=== PATIENT | male | born 2000 | race Hispanic/Latino ===

== ENCOUNTER 2024-06-30 04:56 | Inpatient (IN) | payer BC, SELFPAY ==
[2024-06-30] MEDS ORDERED: Lidocaine 1% w/Epinephrine 1:100K 20 ML VIAL ONE (05:00)
[2024-06-30 05:21] LABS: Hematocrit 42.8 % (42.0-52.0); Hemoglobin 14.7 g/dL (14.0-18.0); Mean Corpuscular HGB CONC 34.3 g/dL (32.0-36.0); Mean Corpuscular Volume 87.3 fL (78.0-98.0); Mean Platelet Volume 9.7 fL (7.4-10.4); Platelet Count 311 10x3/uL (130-400); RBC Distribution Width 12.2 % (11.5-14.5)
[2024-06-30 05:34] LABS: ALT (SGPT) 84 U/L (8-55); AST (SGOT) 109 U/L (5-34); Albumin 4.1 g/dL (3.5-5.0); Alkaline Phosphatase 59 U/L (40-110); Anion Gap 16 mmol/L (10-20); BUN (Urea Nitrogen) 10 mg/dL (8.9-20.6); Bilirubin, Total 0.3 mg/dL (0.2-1.2); Calc. Creatinine Clearance 0 mL/min (70-130); Calcium 8.5 mg/dL (7.8-10.44); Carbon Dioxide 20 mmol/L (22-29); Chloride 108 mmol/L (98-107); Estimated GFR 126; Glucose 142 mg/dL (70-105); Potassium 3.5 mmol/L (3.5-5.1); Protein, Total 7.1 g/dL (6.0-8.3); Sodium 140 mmol/L (136-145)
[2024-06-30 05:49] LABS: Band 8 % (5-11); Lymphocytes 6 % (21-51); Monocytes 5 % (0-10); Neutrophil 81 % (42-75); Platelet Adequacy Comment Platelets Normal; Polychromasia SLIGHT = 2-3 cells HPF (0-2)
[2024-06-30 06:34] VITALS: BMI 30.1
[2024-06-30] MEDS ORDERED: Glucagon 1 MG/ML KIT IM PRN (06:45)
[2024-06-30] MEDS ORDERED: Rib Fracture Protocol PO PRN (06:45)
[2024-06-30] MEDS ORDERED: traMADol HCl 50 MG TAB PO PRN (06:45)
[2024-06-30] MEDS ORDERED: Acetaminophen 325 MG TAB PO PRN (06:45)
[2024-06-30] MEDS ORDERED: Dextrose 50% Abboject 50 ML SYRINGE SLOW IVP PRN (06:45)
[2024-06-30] MEDS ORDERED: Ondansetron ODT 4 MG TAB PO PRN (06:45)
[2024-06-30] MEDS ORDERED: Dextrose 5% in Water 1,000 ML IV PRN (06:45)
[2024-06-30] MEDS ORDERED: Morphine 4 MG/ML VIAL SLOW IVP PRN (06:45)
[2024-06-30] MEDS ORDERED: Cyclobenzaprine 10 MG TAB PO PRN (07:18)
[2024-06-30] MEDS: Lactated Ringer's 1,000 ML IV SCH (07:30)
[2024-06-30] MEDS ORDERED: Iopamidol-370 76% 500 ML MDV (1 ML CHARGE) ONE (10:56)
[2024-06-30 11:31] LABS: #Basophils 0.04 10x3/uL (0.0-0.2); #Eosinophils Less than 0.03 10x3/uL (0.0-0.7); %Basophils 0.2 % (0.0-1.0); %Eosinophils 0.1 % (0.0-10.0); %Lymphocytes 14.3 % (21.0-51.0); %Monocytes 6.9 % (0.0-10.0); %Neutrophils 77.6 % (42.0-75.0); Hematocrit 39.4 % (42.0-52.0); Hemoglobin 13.5 g/dL (14.0-18.0); Mean Corpuscular HGB CONC 34.3 g/dL (32.0-36.0); Mean Corpuscular Hemoglobin 29.9 pg (27.0-31.0); Mean Corpuscular Volume 87.4 fL (78.0-98.0); Mean Platelet Volume 9.5 fL (7.4-10.4); Platelet Count 265 10x3/uL (130-400); RBC Distribution Width 12.3 % (11.5-14.5); Red Blood Cell (RBC) Count 4.51 mill/uL (4.70-6.10)
[2024-06-30] MEDS: Acetaminophen 500 MG TAB PO SCH ×2 (11:50→18:00)
[2024-06-30] MEDS: Methocarbamol 500 MG TAB PO PRN (11:51)
[2024-06-30] MEDS: traMADol HCl 50 MG TAB PO SCH (11:51)
[2024-06-30] MEDS: Ipratropium/Albuterol 3 ML NEB NEB SCH (15:03)
[2024-06-30] MEDS: Gabapentin 300 MG CAP PO SCH (15:53)
[2024-06-30] MEDS: traMADol HCl 50 MG TAB PO PRN (15:54)
[2024-06-30] MEDS: Ibuprofen 200 MG TAB PO SCH (15:56)
[2024-06-30] MEDS: Nicotine 14 MG PATCH TD SCH (15:57)
[2024-06-30 18:33] LABS: #Basophils 0.05 10x3/uL (0.0-0.2); %Basophils 0.3 % (0.0-1.0); %Eosinophils 0.2 % (0.0-10.0); %Lymphocytes 17.8 % (21.0-51.0); %Monocytes 8.4 % (0.0-10.0); %Neutrophils 72.8 % (42.0-75.0); Hematocrit 35.5 % (42.0-52.0); Hemoglobin 12.3 g/dL (14.0-18.0); Mean Corpuscular HGB CONC 34.6 g/dL (32.0-36.0); Mean Corpuscular Hemoglobin 30.3 pg (27.0-31.0); Mean Corpuscular Volume 87.4 fL (78.0-98.0); Platelet Count 253 10x3/uL (130-400); RBC Distribution Width 12.4 % (11.5-14.5); Red Blood Cell (RBC) Count 4.06 mill/uL (4.70-6.10)
[2024-07-01 05:40] LABS: #Basophils 0.03 10x3/uL (0.0-0.2); %Basophils 0.3 % (0.0-1.0); %Eosinophils 2.1 % (0.0-10.0); %Lymphocytes 28.2 % (21.0-51.0); %Monocytes 7.6 % (0.0-10.0); %Neutrophils 61.2 % (42.0-75.0); Hemoglobin 12.3 g/dL (14.0-18.0); Mean Corpuscular HGB CONC 33.2 g/dL (32.0-36.0); Mean Corpuscular Hemoglobin 29.7 pg (27.0-31.0); Mean Corpuscular Volume 89.4 fL (78.0-98.0); Platelet Count 223 10x3/uL (130-400); RBC Distribution Width 12.5 % (11.5-14.5); Red Blood Cell (RBC) Count 4.14 mill/uL (4.70-6.10)
[2024-07-01 06:01] LABS: Anion Gap 11 mmol/L (10-20); BUN (Urea Nitrogen) 6 mg/dL (8.9-20.6); Calc. Creatinine Clearance 209 mL/min (70-130); Calcium 8.5 mg/dL (7.8-10.44); Carbon Dioxide 25 mmol/L (22-29); Chloride 109 mmol/L (98-107); Estimated GFR 133; Glucose 97 mg/dL (70-105); Sodium 141 mmol/L (136-145)
[2024-07-01 17:56] VITALS: BMI 27.2
[2024-07-02 05:17] LABS: #Basophils 0.04 10x3/uL (0.0-0.2); %Basophils 0.4 % (0.0-1.0); %Eosinophils 3.1 % (0.0-10.0); %Lymphocytes 23.1 % (21.0-51.0); %Monocytes 6.8 % (0.0-10.0); %Neutrophils 66.2 % (42.0-75.0); Hematocrit 36.2 % (42.0-52.0); Hemoglobin 12.3 g/dL (14.0-18.0); Mean Corpuscular Hemoglobin 30.1 pg (27.0-31.0); Mean Corpuscular Volume 88.7 fL (78.0-98.0); Mean Platelet Volume 9.8 fL (7.4-10.4); Platelet Count 229 10x3/uL (130-400); RBC Distribution Width 12.5 % (11.5-14.5); Red Blood Cell (RBC) Count 4.08 mill/uL (4.70-6.10)
[2024-07-02 06:23] LABS: Anion Gap 15 mmol/L (10-20); BUN (Urea Nitrogen) 8 mg/dL (8.9-20.6); Calc. Creatinine Clearance 191 mL/min (70-130); Calcium 9.1 mg/dL (7.8-10.44); Carbon Dioxide 24 mmol/L (22-29); Chloride 105 mmol/L (98-107); Estimated GFR 130; Glucose 96 mg/dL (70-105); Potassium 3.7 mmol/L (3.5-5.1); Sodium 140 mmol/L (136-145)
[2024-07-02] MEDS ORDERED: Ipratropium/Albuterol 3 ML NEB NEB PRN (08:01)
[2024-07-02 12:13] LABS: Hematocrit 39.9 % (42.0-52.0); Hemoglobin 13.4 g/dL (14.0-18.0)
[2024-07-02 16:51] VITALS: BP 135/82; TEMP 98.8
== END 2024-07-02 18:23 | disposition home or self-care (01) | DRG 964 ==
LOC: ERS 04:56 → ERHOLD 06:13 → SURG B 10:25 → OBSVTOIN 07-01 14:21
PROVIDERS: ADMIT Specialist; ATTEND Specialist
PROC: 0HQ1XZZ Repair Face Skin, External Approach (ICD-10-PCS; principal; 2024-07-01)
DX: S36.039A Unspecified laceration of spleen, initial encounter (principal); S22.42XA Multiple fractures of ribs, left side, initial encounter for closed fracture; S27.69XA Other injury of pleura, initial encounter; F17.290 Nicotine dependence, other tobacco product, uncomplicated; S01.81XA Laceration without foreign body of other part of head, initial encounter; V47.6XXA Car passenger injured in collision with fixed or stationary object in traffic accident, initial encounter; Y93.89 Activity, other specified; Y92.89 Other specified places as the place of occurrence of the external cause
CPT/HCPCS: 12015; 36415; 70450; 70486; 71045; 71260; 72125; 74177; 80048; 80053; 80307; 85025; 94640; G0378; J7120; J7620; Q9967

== ENCOUNTER 2024-07-16 13:28 | Outpatient (CLI) | payer BC | END 2024-07-16 13:29 | disposition home or self-care (01) | LOC: RAD 13:28 | PROVIDERS: ATTEND Student in an Organized Health Care Education/Training Program | DX: S27.0XXA Traumatic pneumothorax, initial encounter (principal); S22.42XA Multiple fractures of ribs, left side, initial encounter for closed fracture | CPT/HCPCS: 71046 ==